=== PATIENT | female | born 1995 ===

== ENCOUNTER 2017-10-27 05:16 | Emergency (ER) | payer MEDICAID, OTHER ==
[2017-10-27 05:42] VITALS: RESP 18; TEMP 98.5; O2SAT 98
[2017-10-27] MEDS ORDERED: Lidocaine 1% w Epi 1:100,000 Inj ONE (05:57)
[2017-10-27] MEDS ORDERED: Lidocaine 1% w Epi 1:100,000 Inj IJ ONE (06:50)
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
[2017-10-27 07:07] VITALS: BP 112/68; PULSE 82
== END 2017-10-27 07:06 | disposition home or self-care (01) ==
LOC: H.ER 05:16
DX: S01.81XA Laceration without foreign body of other part of head, initial encounter (principal); Y04.0XXA Assault by unarmed brawl or fight, initial encounter; Y92.89 Other specified places as the place of occurrence of the external cause; F12.90 Cannabis use, unspecified, uncomplicated

== ENCOUNTER 2017-11-02 17:44 | Emergency (ER) | payer MEDICAID, OTHER ==
[2017-11-02 17:55] VITALS: O2SAT 100
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
[2017-11-02 22:23] VITALS: BP 100/55; PULSE 92; RESP 18; TEMP 98.5
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
== END 2017-11-02 22:37 | disposition home or self-care (01) ==
LOC: H.ER 17:44
DX: L02.01 Cutaneous abscess of face (principal); Z45.82 Encounter for adjustment or removal of myringotomy device (stent) (tube)

== ENCOUNTER 2017-11-06 15:33 | Emergency (ER) | payer MEDICAID, OTHER ==
[2017-11-06 15:42] VITALS: BP 114/67; PULSE 69; RESP 17; TEMP 97.4; O2SAT 98
--- NOTE | 2017-11-06 16:49 | ED PDOC ---
HPI: Wound Care - HPI Time Seen by Provider: 11/06/17 15:44 Chief Complaint (Nursing): Wound Check Chief Complaint (Provider): Wound Check History Per: Patient Exam Limitations: no limitations Quality Of Symptoms: Swollen Additional Complaint(s): 22 year old female presents to the ED for wound check after having sutures removed on Saturday. Patient reports improvement but states wound is still swollen. PMD: none Past Medical History Reviewed: Historical Data, Nursing Documentation, Vital Signs Vital Signs: Last Vital Signs Temp 97.4 F L 11/06/17 15:39 Pulse 69 11/06/17 15:39 Resp 17 11/06/17 15:39 BP 114/67 11/06/17 15:39 Pulse Ox 98 11/06/17 15:39 - Medical History PMH: No Chronic Diseases - Surgical History Surgical History: No Surg Hx - Family History Family History: States: Unknown Family Hx - Home Medications Home Medications: Ambulatory Orders Medication Instructions Recorded Bacitracin Ointment [Bacitracin] 1 applic TOP BID #1 tube 11/02/17 Cephalexin [Keflex] 500 mg PO TID #21 capsule 11/02/17 Ibuprofen [Motrin Tab] 600 mg PO Q6 PRN #20 tab 11/02/17 Cephalexin [Keflex] 500 mg PO TID #9 capsule 11/06/17 - Allergies Allergies/Adverse Reactions: Allergies Allergy/AdvReac Type Severity Reaction Status Date / Time No Known Allergies Allergy Verified 11/06/17 15:39 Review of Systems ROS Statement: Except As Marked, All Systems Reviewed And Found Negative Skin: Positive for: Other (Swollen wound on forehead) Physical Exam - Reviewed Nursing Documentation Reviewed: Yes Vital Signs Reviewed: Yes - Physical Exam Appears: Positive for: Non-toxic, No Acute Distress Head Exam: Positive for: ATRAUMATIC, NORMOCEPHALIC Skin: Positive for: Normal Color, Warm, Dry Eye Exam: Positive for: Normal appearance Neck: Positive for: Normal, Painless ROM Cardiovascular/Chest: Negative for: Bradycardia, Tachycardia Respiratory: Negative for: Respiratory Distress Extremity: Positive for: Normal ROM Neurologic/Psych: Positive for: Alert, Oriented. Negative for: Motor/Sensory Deficits - ECG O2 Sat by Pulse Oximetry: 98 (RA) Pulse Ox Interpretation: Normal Medical Decision Making Medical Decision Makincc of serosanguinous fluid drained with 18 gaugle needle from the forehead. Sent to lab for culture. Disposition - Clinical Impression Clinical Impression: Encounter for wound re-check - Patient ED Disposition Is Patient to be Admitted: No Counseled Patient/Family Regarding: Diagnosis, Need For Followup, Rx Given - Disposition Referrals: [facility] [Outside] Marysol Brownlee MD [Medical Doctor] - Disposition: Routine/Home Disposition Time: 16:58 Condition: GOOD Prescriptions: Cephalexin [Keflex] 500 mg PO TID #9 capsule Forms: [employer] ([place]i)
== END 2017-11-06 17:04 | disposition home or self-care (01) ==
LOC: H.ER 15:33
DX: Z48.01 Encounter for change or removal of surgical wound dressing (principal)